=== PATIENT | female | born 1975 | race Caucasian/White ===

== ENCOUNTER 2017-04-12 18:54 | Emergency (ER) | payer MEDICAID ==
[~2017-04-12] VITALS: Ht 157.5 cm; Wt 102.5 kg
[~2017-04-12 18:54] MED LIST: CIPR250T27 PO; CYCL5TAB PO; LEVO175T2 PO
[2017-04-12] MEDS ORDERED: SODIUM CHLORIDE FLUSH 10ML SYR IVF ONE (19:30)
[2017-04-12 20:35] LABS: BLOOD UREA NITROGEN 11 mg/dL (7-18)
[2017-04-12] MEDS ORDERED: DIPHENHYDRAMINE 50 MG/ML, 1ML ONE (20:45)
[2017-04-12] MEDS ORDERED: METOCLOPRAMIDE 5 MG/ML, 2ML ONE (20:45)
[2017-04-12] MEDS ORDERED: SODIUM CHLORIDE 0.9% 1,000ML IVBOLUS ONE (21:00)
[2017-04-12] MEDS ORDERED: DIPHENHYDRAMINE 50 MG/ML, 1ML IVPush ONE (21:00)
[2017-04-12] MEDS ORDERED: METOCLOPRAMIDE 5 MG/ML, 2ML IVPush ONE (21:00)
[2017-04-12] MEDS ORDERED: FLUORESCEIN OPHTHALMIC 1 MG STRIP ONE (21:20)
[2017-04-12] MEDS ORDERED: PROPARACAINE OPHTH 0.5%, 15ML ONE (21:20)
[2017-04-12] MEDS ORDERED: FLUORESCEIN OPHTHALMIC 1 MG STRIP EACHEYE ONE (21:30)
[2017-04-12] MEDS ORDERED: PROPARACAINE OPHTH 0.5%, 15ML EACHEYE ONE (21:30)
[2017-04-12 22:24] VITALS: BP 132/68
== END 2017-04-12 22:35 | disposition home or self-care (01) ==
LOC: ED 22:29
DX: M54.2 Cervicalgia (principal); H11.32 Conjunctival hemorrhage, left eye
CPT/HCPCS: 36415; 70450; 71010; 80048; 82040; 85025; 96361; 96374; 96375; 99285; J1200; J2765; J7030

== ENCOUNTER 2017-04-27 15:27 | Emergency (ER) | payer MEDICAID ==
[~2017-04-27] VITALS: Ht 157.5 cm; Wt 102.2 kg
[2017-04-27] MEDS ORDERED: DIAZEPAM 5 MG TABLET PO ONE (16:00)
[2017-04-27] MEDS ORDERED: KETOROLAC 30 MG/1 ML IM ONE (16:00)
[2017-04-27] MEDS ORDERED: OXYcodone/APAP 5/325MG TABLET PO ONE (16:00)
[2017-04-27] MEDS ORDERED: OXYcodone/APAP 5/325MG TABLET ONE (16:29)
[2017-04-27] MEDS ORDERED: DIAZEPAM 5 MG TABLET ONE (16:29)
[2017-04-27] MEDS ORDERED: KETOROLAC 30 MG/1 ML ONE (16:29)
[2017-04-27] MEDS ORDERED: MORPHINE SULFATE 4 MG/ML, 1ML ONE (16:40)
[2017-04-27] MEDS ORDERED: DIAZEPAM 5 MG/ML, 2ML ONE ×2 (16:40)
[2017-04-27] MEDS ORDERED: SODIUM CHLORIDE FLUSH 10ML SYR IVF ONE (17:00)
[2017-04-27] MEDS ORDERED: DIAZEPAM 5 MG/ML, 2ML IVPush ONE (17:00)
[2017-04-27] MEDS ORDERED: MORPHINE SULFATE 4 MG/ML, 1ML IVPush PRN (17:00)
[2017-04-27] MEDS ORDERED: KETOROLAC 30 MG/1 ML IVPush ONE (17:00)
[2017-04-27 19:00] VITALS: BP 126/55
== END 2017-04-27 19:03 | disposition home or self-care (01) ==
LOC: ED 18:57
DX: M54.5 Low back pain (principal); M54.6 Pain in thoracic spine; E07.9 Disorder of thyroid, unspecified
CPT/HCPCS: 96374; 96375; 99284; J1885; J3360

== ENCOUNTER → 2017-05-12 | Outpatient (CLI) | payer MEDICAID | END | disposition home or self-care (01) | LOC: RAD 16:01 | PROVIDERS: ATTEND Family Medicine | DX: M47.896 Other spondylosis, lumbar region (principal); M48.07 Spinal stenosis, lumbosacral region | CPT/HCPCS: 72114 ==

== ENCOUNTER 2018-06-09 11:02 | Emergency (ER) | payer MEDICAID ==
[~2018-06-09] VITALS: Ht 157.5 cm; Wt 104.0 kg
[2018-06-09 11:05] VITALS: BP 124/71
[2018-06-09] MEDS ORDERED: DIPH,PERTUSS(ACELL),TET VAC/PF 0.5 ML IM-VACC ONE ×2 (11:53→12:00)
[2018-06-09] MEDS ORDERED: BACITRACIN ZINC OINT 500U/GM, 0.9 GM ONE (11:54)
[2018-06-09] MEDS ORDERED: LIDOCAINE 1%-EPI 1:100K, 20ML SQ ONE (12:00)
== END 2018-06-09 12:21 | disposition home or self-care (01) ==
LOC: ED 12:05
DX: S81.812A Laceration without foreign body, left lower leg, initial encounter (principal); W20.8XXA Other cause of strike by thrown, projected or falling object, initial encounter; Y93.89 Activity, other specified; Y92.009 Unspecified place in unspecified non-institutional (private) residence as the place of occurrence of the external cause; Y99.8 Other external cause status
CPT/HCPCS: 12031; 90471; 90715; 99284; J3490

== ENCOUNTER 2019-01-26 19:25 | Emergency (ER) | payer MEDICAID ==
[~2019-01-26] VITALS: Ht 157.5 cm; Wt 105.5 kg
[2019-01-26 19:36] VITALS: BP 123/48
[2019-01-26] MEDS ORDERED: PROMETHAZINE/COD. 10MG/6.25MG/5 ML ORAL SOL PO ONE (21:00)
[2019-01-26 21:16] LABS: RAPID INFLUENZA A Negative (Negative); RAPID INFLUENZA B Negative (Negative)
== END 2019-01-26 21:44 | disposition home or self-care (01) ==
LOC: ED 21:30
DX: B34.9 Viral infection, unspecified (principal); F41.1 Generalized anxiety disorder; Z88.1 Allergy status to other antibiotic agents; Z98.890 Other specified postprocedural states
CPT/HCPCS: 71046; 87400; 99284